=== PATIENT | male | born 1955 | race Caucasian/White ===

== ENCOUNTER 2021-03-03 12:05 | Emergency (ER) | payer BC, SELFPAY ==
[2021-03-03 12:12] VITALS: BP 104/64; PULSE 58; RESP 16; TEMP 36.3; O2SAT 98; BMI 22.8
--- NOTE | 2021-03-03 12:35 | ED_ITS ---
HPI - Wound/Laceration General: Chief Complaint: Wound/Laceration Stated Complaint: LEFT HAND INJURY Time Seen by Provider: 03/03/21 12:18 History of Present Illness: HPI narrative: This pleasant gentleman was using a concrete saw little while ago and cut his left wrist with the saw. Presents for repair. Onset (ago): minute(s) Extremity Location: Left: wrist Place: home Patient tetanus UTD: Yes Context: accidental Associated symptoms: Reports no associated symptoms; Denies chills, fever(s), nausea or vomiting Review of Systems Const: Denies: fever(s), chills or body aches Eyes: Denies: change in vision or blurry vision ENMT: Denies: throat pain or nasal congestion Card: Denies: chest pain or dyspnea on exertion Resp: Denies: dyspnea, productive cough or non-productive cough GI: Denies: abdominal pain, nausea or vomiting : Denies: difficulty urinating Musc: Denies: extremity pain Skin/Breast: Reports: other (3 inch irregular laceration to left wrist from concrete saw that happened m); Denies: rash Neuro: Denies: headache(s) Psych: Denies: anxiety or depression Varun/Lymph: Denies: easy bruising PFSH ED PFSH: Medical History No pertinent past medical history Social History Smoking and tobacco status: never smoked Household members: none Current occupational status: retired Physical Exam Const: COMMON NORMALS: no acute distress Extremity: LEFT UPPER EXTREMITY: Yes wrist (3 inch irregular laceration with tendon exposed and about 1/4 inch of tendo) Left wrist: Yes ROM (Had has full range of motion of all digits) and Yes neurovascular exam (Intact) Psych: COMMON NORMALS: mental status grossly normal Procedures Laceration Laceration 1: Site: upper extremity Side (If applicable): left Size (cm): 10 Description: irregular Depth: simple, single layer, involves muscle layer and involves tendon Local Anesthetic: lidocaine 1% Amount of anesthesia used (mL): 4 Pre-repair: wound explored and irrigated extensively Skin layer closed with: other Size (cm): 3-0 and other (Ethilon) Number of sutures: 13 Technique: simple, interrupted Course Vital Signs: Vital signs: Vital Signs Temperature 97.3 F L 03/03/21 12:12 Pulse Rate 58 L 03/03/21 12:12 Respiratory Rate 16 03/03/21 12:12 Blood Pressure 104/64 03/03/21 12:12 Pulse Oximetry 98 03/03/21 12:12 MDM - Wound/Laceration MDM Narrative: Medical decision making narrative: Consult with Dr. Mora. Also consulted with Dr. Stevenson hand surgeon [facility]. Explained wound damage injury to Dr. Stevenson. Explained that patient is able move his thumb in all cardinal movements and also he has no numbness to his thumb also explained that the tendon was frayed about senior care through on the extensor tendon and about 1/[address] Stevenson says okay to close up and if the patient 1 to follow-up he is welcome to do that are if he does not want to follow-up he does not really need to. I explained this patient patient elects to have me close the wound and he will follow up if he needs to a later date. Wound was closed after thorough irrigation was able move his thumb afterwards without any difficulty in all directions and had no numbness to his thumb. 13 sutures were placed. Patient was placed on antibiotics. Discharge Plan Discharge Patient Disposition: Home Clinical Impression: Laceration Condition: Stable Prescriptions: New cephalexin 500 mg capsule 500 mg PO Q8H 7 Days Qty: 21 RF: 0 No Action silver sulfadiazine [Silvadene] 1 % cream 1 applic topical BID 14 Days Qty: 20 RF: 0 Discharge Orders: Discharge ED (Routine); Ordered 03/03/21 Ordered By: Zoltan Santamaria Referrals: Jonnie White MD [Primary Care Provider] - Discharge Diet: Usual diet Discharge Activity: Increase activity as tolerated Patient Instructions: Suture Care (ED), Laceration (ED) Activity Restrictions/Additional Instructions: Follow-up with medical provider as directed. Take medications as prescribed. Return to the ER or your medical provider if condition worsens. Please read and understand discharge instructions. If any questions ask please. Sutures out in 7 days. Coding Level of Care Code ED Prosthetic Assistant for Rosa Fwfrancisco Exam Expanded Problem Focused
[2021-03-03 13:30] VITALS: BP 127/71; PULSE 58; RESP 16; O2SAT 99
--- NOTE | 2021-03-14 12:08 | PC.NURSE ---
Pt returned for suture removal. 13 sutures removed intact. No bleeding noted. Incision well approximated and healing well.
== END 2021-03-03 13:36 | disposition home or self-care (01) ==
PROVIDERS: Emergency Provider Nurse Practitioner Family; PCP Family Medicine
DX: S61.512A Laceration without foreign body of left wrist, initial encounter (principal); W27.0XXA Contact with workbench tool, initial encounter
CPT/HCPCS: 12004; 99282